=== PATIENT | male | born 1965 | race Two or more races ===

== ENCOUNTER 2017-12-08 05:07 | Emergency (ER) | payer MEDICAID, OTHER ==
[~2017-12-08] VITALS: Ht 185.4 cm; Wt 106.6 kg
[2017-12-08] MEDS ORDERED: cloNIDine HCL 0.1 MG TAB PO ONE ×2 (05:45→08:45)
[2017-12-08 06:37] LABS: Basophils # (auto) 0.1 uL; Eosinophils # (auto) 0.2 uL; Eosinophils % (auto) 3.8 % (0.0-7.0); Monocytes # (auto) 0.4 uL
[2017-12-08 06:40] LABS: Hematocrit 53.4 % (41.0-53.0); Hemoglobin 18.1 g/dL (13.5-17.5); Lymphocytes % (auto) 35.7 % (10.0-50.0); Mean Corpuscular Hemoglobin 28.9 pg (28.0-32.0); Mean Corpuscular Hgb Conc. 33.9 g/dL (32.0-36.0); Monocytes % (auto) 7.1 % (0.0-12.0); Neutrophils # (auto) 2.9 uL; Neutrophils % (auto) 52.4 % (37.0-80.0); Nucleated Red Blood Cells % 0.2 %; Platelet Count (auto) 230 10^3/uL (140-450); Red Blood Cells 6.28 10^6/uL (4.5-5.90); Red Cell Distribution Width 13.3 % (11.8-14.3); White Blood Cell 5.6 10^3/uL (4.4-10.8)
[2017-12-08 06:56] LABS: INR 0.88 (0.9-1.15); Partial Thromboplastin Time 27.8 sec (23.78-33.04); Prothrombin Time 9.5 sec (9.27-12.13)
[2017-12-08 07:17] LABS: Alanine Aminotransferase 43 U/L (16-61); Albumin 4.2 g/dL (3.4-5.0); Alkaline Phosphatase 111 U/L (45-117); Anion Gap 8 (5-15); Aspartate Aminotransferase 22 U/L (15-37); BUN/Creatinine Ratio 10.2; Bilirubin, Total 0.8 mg/dL (0.2-1.0); Blood Urea Nitrogen 14 mg/dL (7-18); Calcium 8.9 mg/dL (8.5-10.1); Carbon Dioxide 27 mmol/L (21-32); Chloride 107 mmol/L (98-107); GFR African American 70 mL/min; GFR Non-African American 58 mL/min; Glucose 107 mg/dL (74-106); Magnesium 2.9 mg/dL (1.6-2.6); Potassium 3.2 mmol/L (3.5-5.1); Sodium 142 mmol/L (136-145); Total Protein 7.7 g/dL (6.4-8.2)
[2017-12-08 12:14] VITALS: BP 169/116
== END 2017-12-08 12:27 | disposition home or self-care (01) ==
LOC: ER 05:07
DX: S90.02XA Contusion of left ankle, initial encounter (principal); E78.5 Hyperlipidemia, unspecified; I10 Essential (primary) hypertension; F17.210 Nicotine dependence, cigarettes, uncomplicated; W21.03XA Struck by baseball, initial encounter; Y93.89 Activity, other specified; Y92.89 Other specified places as the place of occurrence of the external cause; Y99.8 Other external cause status
CPT/HCPCS: 36415; 71045; 73630; 80053; 83735; 83880; 84484; 85025; 85610; 85730; 93005; 93971

== ENCOUNTER 2023-02-07 17:16 | Emergency (ER) | payer MEDICAID ==
[~2023-02-07] VITALS: Ht 180.3 cm; Wt 103.6 kg
[2023-02-07] MEDS ORDERED: SODIUM CHLORIDE 0.9% 1,000 ML IV ONE ×2 (17:45→20:15)
[2023-02-07] MEDS ORDERED: LORazepam 2MG/ML-1ML VIAL IV ONE (17:45)
[2023-02-07 17:48] VITALS: O2SAT 95
[2023-02-07 18:22] LABS: Basophils # (auto) 0 10 ^3/uL (0-0.2); Eosinophils # (auto) 0.1 10 ^3/uL (0-0.8); Eosinophils % (auto) 1.1 % (0.0-7.0); Lymphocytes # (auto) 1.6 10 ^3/uL (0.4-5.4)
[2023-02-07 18:24] LABS: Basophils % (auto) 0.4 % (0.0-2.0); Hematocrit 54.3 % (41.0-53.0); Hemoglobin 18.8 g/dL (13.5-17.5); Lymphocytes % (auto) 25.2 % (10.0-50.0); Mean Corpuscular Hemoglobin 28.6 pg (28.0-32.0); Mean Corpuscular Hgb Conc. 34.7 g/dL (32.0-36.0); Mean Corpuscular Volume 82.4 fL (80.0-100.0); Monocytes # (auto) 0.4 10 ^3/uL (0-1.3); Monocytes % (auto) 6.7 % (0.0-12.0); Neutrophils # (auto) 4.1 10 ^3/uL (1.6-8.6); Neutrophils % (auto) 66.6 % (37.0-80.0); Nucleated Red Blood Cells % 0.4 %; Red Blood Cells 6.59 10^6/uL (4.5-5.90); Red Cell Distribution Width 12.8 % (11.8-14.3); White Blood Cell 6.1 10^3/uL (4.4-10.8)
[2023-02-07 18:32] LABS: Alanine Aminotransferase 59 U/L (7-40); Albumin 4.2 g/dL (3.2-4.8); Alkaline Phosphatase 161 U/L (46-116); Anion Gap 10 (5-15); Aspartate Aminotransferase 40 U/L (13-40); BUN/Creatinine Ratio 15.9 (10.0-20.0); Bilirubin, Total 0.6 mg/dL (0.2-1.0); Blood Urea Nitrogen 31 mg/dL (9-23); Calcium 9.2 mg/dL (8.5-10.1); Carbon Dioxide 21 mmol/L (20-30); Chloride 99 mmol/L (98-107); Potassium 4.8 mmol/L (3.5-5.1); Sodium 130 mmol/L (136-145); Total Protein 6.9 g/dL (5.7-8.2)
[2023-02-07 18:38] LABS: Glucose 697 mg/dL (74-106)
[2023-02-07] MEDS ORDERED: InsuLIN REG 1unit/0.01ml Soln (100units/ml) IV ONE (19:15)
[2023-02-07] MEDS ORDERED: hydrALAZINE HCL 20 MG/ML VL IV ONE (19:15)
[2023-02-07 19:44] VITALS: PULSE 91; RESP 24; O2SAT 92
[2023-02-07 20:00] VITALS: TEMP 98.4
[2023-02-07 20:10] LABS: Urine Bacteria NONE SEEN /hpf (None Seen); Urine Blood Negative /uL (Negative); Urine Clarity Clear (Clear); Urine Color Colorless (Yellow); Urine Protein, UAD Negative (Negative); Urine Urobilinogen Normal (Negative); Urine WBC 1 /hpf (0 - 3)
[2023-02-07] MEDS ORDERED: LABETALOL HCL 5 MG/ML 4ML SYRINGE IV ONE (20:30)
[2023-02-07] MEDS ORDERED: GLIP5TAB12 PO (22:54)
[2023-02-07] MEDS ORDERED: HYDR25TA4 PO (22:54)
[2023-02-07 23:30] VITALS: BP 144/96; PULSE 75; RESP 18; O2SAT 95
== END 2023-02-07 23:41 | disposition home or self-care (01) ==
LOC: ER 17:16
DX: I10 Essential (primary) hypertension (principal); E11.9 Type 2 diabetes mellitus without complications; F17.210 Nicotine dependence, cigarettes, uncomplicated; E78.5 Hyperlipidemia, unspecified
CPT/HCPCS: 36415; 80053; 81001; 82962; 84484; 85025; 93005; 96361; 96374; 96375; 99284; J0360; J1815; J2060; J3490; J7030

== ENCOUNTER 2023-02-09 10:02 | Inpatient (IN) | payer MEDICAID ==
[~2023-02-09] VITALS: Ht 185.4 cm; Wt 106.0 kg
[~2023-02-09 10:02] MED LIST: GLIP5TAB12 PO; HYDR25TA4 PO
[2023-02-09 10:58] VITALS: PULSE 78; RESP 16; O2SAT 97
[2023-02-09 11:12] LABS: Eosinophils # (auto) 0.1 10 ^3/uL (0-0.8)
[2023-02-09 11:15] LABS: Basophils # (auto) 0 10 ^3/uL (0-0.2); Basophils % (auto) 0.6 % (0.0-2.0); Eosinophils % (auto) 1.1 % (0.0-7.0); Hematocrit 54.2 % (41.0-53.0); Hemoglobin 18.8 g/dL (13.5-17.5); Lymphocytes # (auto) 1.4 10 ^3/uL (0.4-5.4); Mean Corpuscular Hemoglobin 28.4 pg (28.0-32.0); Mean Corpuscular Hgb Conc. 34.7 g/dL (32.0-36.0); Mean Corpuscular Volume 81.6 fL (80.0-100.0); Monocytes # (auto) 0.5 10 ^3/uL (0-1.3); Monocytes % (auto) 7.3 % (0.0-12.0); Neutrophils # (auto) 4.6 10 ^3/uL (1.6-8.6); Nucleated Red Blood Cells % 0.6 %; Red Blood Cells 6.64 10^6/uL (4.5-5.90); Red Cell Distribution Width 13.1 % (11.8-14.3); White Blood Cell 6.6 10^3/uL (4.4-10.8)
[2023-02-09 11:16] LABS: Alanine Aminotransferase 54 U/L (7-40); Albumin 4.3 g/dL (3.2-4.8); Alkaline Phosphatase 165 U/L (46-116); Anion Gap 5 (5-15); Aspartate Aminotransferase 25 U/L (13-40); BUN/Creatinine Ratio 15.5 (10.0-20.0); Blood Urea Nitrogen 24 mg/dL (9-23); Calcium 9.5 mg/dL (8.5-10.1); Carbon Dioxide 23 mmol/L (20-30); Chloride 102 mmol/L (98-107); Potassium 5.2 mmol/L (3.5-5.1); Sodium 130 mmol/L (136-145); Total Protein 7.1 g/dL (5.7-8.2)
[2023-02-09 11:31] LABS: Glucose 608 mg/dL (74-106)
[2023-02-09] MEDS ORDERED: SODIUM CHLORIDE 0.9% 1,000 ML IV ONE ×3 (11:45→15:15)
[2023-02-09] MEDS ORDERED: DEXTROSE (50%) 50ML SYRG IV PRN ×2 (11:45→15:15)
[2023-02-09] MEDS ORDERED: INSULIN LANTUS (GLARGINE) 1 /0.01ml (100units/ml) SC ONE (11:45)
[2023-02-09] MEDS ORDERED: InsuLIN R (HUMAN) 100 UNITS in SODIUM CHL 0.9% 99 ML IV SCH (11:45)
[2023-02-09 11:56] LABS: Platelet Estimate Adequate
[2023-02-09] MEDS ORDERED: ACCU-CHEK COMFORT CURVE STRIP VI SCH (12:00)
[2023-02-09 12:01] LABS: Urine Bacteria NONE SEEN /hpf (None Seen); Urine Blood Negative /uL (Negative); Urine Clarity Clear (Clear); Urine Protein, UAD Negative (Negative); Urine Urobilinogen Normal (Negative); Urine WBC <1 /hpf (0 - 3)
[2023-02-09 12:06] LABS: Urine Color Straw (Yellow)
[2023-02-09] MEDS ORDERED: InsuLIN REG 1unit/0.01ml Soln (100units/ml) IV ONE ×2 (12:45→13:45)
[2023-02-09] MEDS ORDERED: ONDANSETRON HCL 4 MG/2 ML VIAL IV PRN (15:15)
[2023-02-09] MEDS ORDERED: DOCUSATE SOD 100 MG CAP PO PRN (15:15)
[2023-02-09] MEDS ORDERED: SODIUM CHLORIDE 0.9% 1,000 ML IV SCH ×2 (15:15→16:30)
[2023-02-09] MEDS ORDERED: MORPHINE SULFATE INJ 2 MG/ml SYRG IV PRN (15:15)
[2023-02-09] MEDS: ENOXAPARIN SOD 40 MG/0.4 ML SYRINGE SC SCH (16:41)
[2023-02-09] MEDS: SODIUM CHLORIDE 0.9% 1,000 ML IV SCH (16:45)
[2023-02-09 17:37] LABS: Creatinine, Urine 26.47 mg/dL (30.0-125.0)
[2023-02-09] MEDS: ACCU-CHEK COMFORT CURVE STRIP VI SCH ×2 (17:45→22:11)
[2023-02-09] MEDS: hydrALAZINE HCL 20 MG/ML VL IV PRN (18:39)
[2023-02-09 19:34] LABS: Alanine Aminotransferase 40 U/L (7-40); Albumin 3.6 g/dL (3.2-4.8); Alkaline Phosphatase 118 U/L (46-116); Anion Gap 6 (5-15); Aspartate Aminotransferase 22 U/L (13-40); BUN/Creatinine Ratio 11.9 (10.0-20.0); Bilirubin, Total 0.6 mg/dL (0.2-1.0); Blood Urea Nitrogen 16 mg/dL (9-23); Calcium 8.8 mg/dL (8.5-10.1); Carbon Dioxide 23 mmol/L (20-30); Chloride 107 mmol/L (98-107); Potassium 4.3 mmol/L (3.5-5.1); Sodium 136 mmol/L (136-145); Total Protein 6.2 g/dL (5.7-8.2)
[2023-02-09 19:49] LABS: Glucose 422 mg/dL (74-106)
[2023-02-09 20:00] VITALS: PULSE 74; RESP 12; O2SAT 94
[2023-02-09] MEDS: InsuLIN REG 1unit/0.01ml Soln (100units/ml) SC SCH (20:58)
[2023-02-09 22:00] VITALS: BP 185/91; PULSE 76; RESP 20; TEMP 98.7; O2SAT 98
[2023-02-09] MEDS: GABAPENTIN 100 MG CAP PO SCH ×2 (22:00→22:11)
[2023-02-09] MEDS ORDERED: InsuLIN REG 1unit/0.01ml Soln (100units/ml) SC SCH (22:00)
[2023-02-09 22:37] VITALS: BP 185/91; PULSE 76; RESP 20; TEMP 98.7; O2SAT 98
[2023-02-09] MEDS: ACETAMINOPHEN 325 MG TAB PO PRN (23:27)
[2023-02-10] VITALS (9 sets, daily range): BP systolic 139–175; BP diastolic 86–111; PULSE 76–88; RESP 17–19; TEMP 97–98.7; O2SAT 93–99
[2023-02-10] MEDS: hydrALAZINE HCL 20 MG/ML VL IV PRN ×4 (00:03→18:44)
[2023-02-10] MEDS: SODIUM CHLORIDE 0.9% 1,000 ML IV SCH ×3 (00:45→13:39)
[2023-02-10] MEDS ORDERED: SIMV40TA18 PO (03:37)
[2023-02-10] MEDS ORDERED: LISI40TA16 PO (03:38)
[2023-02-10] MEDS ORDERED: AMLO1TAB22 PO (03:39)
[2023-02-10] MEDS: GABAPENTIN 100 MG CAP PO SCH ×3 (05:31→21:37)
[2023-02-10] MEDS: ACCU-CHEK COMFORT CURVE STRIP VI SCH ×4 (06:26→21:38)
[2023-02-10] MEDS: InsuLIN REG 1unit/0.01ml Soln (100units/ml) SC SCH ×4 (06:27→21:41)
[2023-02-10 07:36] LABS: Basophils # (auto) 0.1 10 ^3/uL (0-0.2); Eosinophils # (auto) 0.1 10 ^3/uL (0-0.8); Hematocrit 50.8 % (41.0-53.0); Hemoglobin 17.9 g/dL (13.5-17.5); Lymphocytes # (auto) 1.7 10 ^3/uL (0.4-5.4); Lymphocytes % (auto) 32.9 % (10.0-50.0); Mean Corpuscular Hemoglobin 28.4 pg (28.0-32.0); Mean Corpuscular Hgb Conc. 35.2 g/dL (32.0-36.0); Mean Corpuscular Volume 80.5 fL (80.0-100.0); Monocytes # (auto) 0.3 10 ^3/uL (0-1.3); Monocytes % (auto) 6.3 % (0.0-12.0); Neutrophils # (auto) 3.1 10 ^3/uL (1.6-8.6); Neutrophils % (auto) 57.8 % (37.0-80.0); Nucleated Red Blood Cells % 0.5 %; Red Blood Cells 6.31 10^6/uL (4.5-5.90); Red Cell Distribution Width 13.1 % (11.8-14.3); White Blood Cell 5.3 10^3/uL (4.4-10.8)
[2023-02-10 07:53] LABS: Alanine Aminotransferase 47 U/L (7-40); Albumin 3.9 g/dL (3.2-4.8); Alkaline Phosphatase 112 U/L (46-116); Anion Gap 9 (5-15); Aspartate Aminotransferase 23 U/L (13-40); BUN/Creatinine Ratio 9.9 (10.0-20.0); Bilirubin, Total 0.9 mg/dL (0.2-1.0); Blood Urea Nitrogen 12 mg/dL (9-23); Calcium 9.1 mg/dL (8.5-10.1); Carbon Dioxide 21 mmol/L (20-30); Chloride 109 mmol/L (98-107); Cholesterol 160 mg/dL (< 200); HDL Cholesterol 23 mg/dL (40-59); LDL Cholesterol 90 mg/dL (< 100); Potassium 3.8 mmol/L (3.5-5.1); Sodium 139 mmol/L (136-145); Total Protein 6.6 g/dL (5.7-8.2); Triglycerides 297 mg/dL (< 150)
[2023-02-10 07:55] LABS: Glucose 266 mg/dL (74-106)
[2023-02-10] MEDS: INSULIN LANTUS (GLARGINE) 1 /0.01ml (100units/ml) SC SCH (08:45)
[2023-02-10] MEDS: ENOXAPARIN SOD 40 MG/0.4 ML SYRINGE SC SCH (10:00)
[2023-02-10] MEDS ORDERED: LOSARTAN POTASSIUM 25 MG TAB PO SCH (10:00)
[2023-02-10] MEDS ORDERED: LISINOPRIL 20 MG TAB PO ONE ×2 (13:00→18:00)
[2023-02-10] MEDS ORDERED: DEXTROSE (50%) 50ML SYRG IV PRN (13:00)
[2023-02-10] MEDS ORDERED: amLODIPine BESYLATE 5 MG TAB PO ONE (13:00)
[2023-02-10] MEDS: metFORMIN HYDROCHLORIDE 500 MG TAB PO SCH (17:23)
[2023-02-10] MEDS ORDERED: RAME8TAB17 PO (18:23)
[2023-02-10] MEDS ORDERED: GLIP-110 PO (18:23)
[2023-02-10] MEDS ORDERED: HYDR25TA4 PO (18:23)
[2023-02-10] MEDS ORDERED: SILD50TA42 PO (18:23)
[2023-02-10] MEDS: ATORVASTATIN 20 MG TAB PO SCH (21:37)
[2023-02-10] MEDS: ACETAMINOPHEN 325 MG TAB PO PRN (21:39)
[2023-02-11] VITALS (7 sets, daily range): BP systolic 127–154; BP diastolic 83–109; PULSE 72–98; RESP 18–20; TEMP 97.7–98.2; O2SAT 95–98
[2023-02-11] MEDS: hydrALAZINE HCL 20 MG/ML VL IV PRN ×2 (03:30→20:15)
[2023-02-11] MEDS: ACETAMINOPHEN 325 MG TAB PO PRN ×2 (03:43→20:12)
[2023-02-11] MEDS: SODIUM CHLORIDE 0.9% 1,000 ML IV SCH (05:40)
[2023-02-11] MEDS: GABAPENTIN 100 MG CAP PO SCH ×3 (05:58→21:20)
[2023-02-11] MEDS: ACCU-CHEK COMFORT CURVE STRIP VI SCH ×4 (05:58→21:32)
[2023-02-11] MEDS: InsuLIN REG 1unit/0.01ml Soln (100units/ml) SC SCH ×4 (06:00→21:34)
[2023-02-11 06:10] LABS: Chloride 104 mmol/L (98-107); Potassium 3.7 mmol/L (3.5-5.1); Sodium 136 mmol/L (136-145)
[2023-02-11 06:11] LABS: Anion Gap 10 (5-15); Carbon Dioxide 22 mmol/L (20-30)
[2023-02-11 06:16] LABS: BUN/Creatinine Ratio 9.5 (10.0-20.0); Blood Urea Nitrogen 13 mg/dL (9-23); Glucose 243 mg/dL (74-106)
[2023-02-11] MEDS: metFORMIN HYDROCHLORIDE 500 MG TAB PO SCH (08:00)
[2023-02-11] MEDS: LISINOPRIL 20 MG TAB PO SCH (09:45)
[2023-02-11] MEDS: INSULIN LANTUS (GLARGINE) 1 /0.01ml (100units/ml) SC SCH ×2 (09:47→22:45)
[2023-02-11] MEDS ORDERED: amLODIPine BESYLATE 5 MG TAB PO SCH (10:00)
[2023-02-11] MEDS ORDERED: glipiZIDE 5 MG TAB PO ONE (12:45)
[2023-02-11] MEDS ORDERED: amLODIPine BESYLATE 5 MG TAB PO ONE (12:45)
[2023-02-11] MEDS: ATORVASTATIN 20 MG TAB PO SCH (21:19)
[2023-02-12 05:00] VITALS: BP 162/102; PULSE 72; RESP 17; TEMP 97.9; O2SAT 96
[2023-02-12] MEDS: GABAPENTIN 100 MG CAP PO SCH ×2 (06:00→14:00)
[2023-02-12] MEDS: ACCU-CHEK COMFORT CURVE STRIP VI SCH ×2 (06:11→12:57)
[2023-02-12] MEDS: InsuLIN REG 1unit/0.01ml Soln (100units/ml) SC SCH ×2 (06:12→12:58)
[2023-02-12] MEDS: hydrALAZINE HCL 20 MG/ML VL IV PRN (06:34)
[2023-02-12 06:36] LABS: Anion Gap 5 (5-15); Calcium 8.9 mg/dL (8.7-10.4); Carbon Dioxide 26 mmol/L (20-30); Chloride 105 mmol/L (98-107); Potassium 3.9 mmol/L (3.5-5.1); Sodium 136 mmol/L (136-145)
[2023-02-12 06:42] LABS: BUN/Creatinine Ratio 9.5 (10.0-20.0); Blood Urea Nitrogen 13 mg/dL (9-23); Glucose 204 mg/dL (74-106)
[2023-02-12] MEDS ORDERED: glipiZIDE 5 MG TAB PO SCH (07:00)
[2023-02-12 08:00] VITALS: PULSE 86; RESP 18; O2SAT 96
[2023-02-12 09:00] VITALS: BP 153/77; PULSE 78; RESP 20; TEMP 98.7; O2SAT 96
[2023-02-12] MEDS: LISINOPRIL 20 MG TAB PO SCH (09:59)
[2023-02-12] MEDS ORDERED: amLODIPine BESYLATE 5 MG TAB PO SCH (10:00)
[2023-02-12] MEDS: ACETAMINOPHEN 325 MG TAB PO PRN (10:01)
[2023-02-12] MEDS: INSULIN LANTUS (GLARGINE) 1 /0.01ml (100units/ml) SC SCH (10:08)
[2023-02-12] MEDS ORDERED: INSU100I61 SC (12:01)
[2023-02-12] MEDS ORDERED: INSLANTI SC (12:13)
[2023-02-12 13:55] VITALS: PULSE 86; RESP 18; TEMP 97.8
== END 2023-02-12 15:31 | disposition home or self-care (01) | DRG 420 ==
LOC: EDBD 10:02 → ER 10:02 → OVERFLOW 15:19 → TELE 15:28 → TELE-WESTW 21:41 → WEST WING 02-11 08:45
PROVIDERS: ADMIT Nurse Practitioner Family; ATTEND Internal Medicine
DX: E11.00 Type 2 diabetes mellitus with hyperosmolarity without nonketotic hyperglycemic-hyperosmolar coma (NKHHC) (principal); N17.0 Acute kidney failure with tubular necrosis; E11.65 Type 2 diabetes mellitus with hyperglycemia; E87.5 Hyperkalemia; E87.1 Hypo-osmolality and hyponatremia; I16.0 Hypertensive urgency; F12.10 Cannabis abuse, uncomplicated; E78.5 Hyperlipidemia, unspecified; E86.0 Dehydration; E11.40 Type 2 diabetes mellitus with diabetic neuropathy, unspecified; F15.90 Other stimulant use, unspecified, uncomplicated; F17.210 Nicotine dependence, cigarettes, uncomplicated; R74.01 Elevation of levels of liver transaminase levels; E66.9 Obesity, unspecified; Z68.30 Body mass index [BMI] 30.0-30.9, adult; E11.22 Type 2 diabetes mellitus with diabetic chronic kidney disease; I12.9 Hypertensive chronic kidney disease with stage 1 through stage 4 chronic kidney disease, or unspecified chronic kidney disease; N18.30 Chronic kidney disease, stage 3 unspecified
CPT/HCPCS: 36415; 36600; 76775; 80048; 80053; 80061; 81001; 82010; 82570; 82805; 82962; 83036; 84300; 85025; 93005; 93970; 96372; 96374; 99291; G0378; J1815

== ENCOUNTER 2024-10-15 10:31 | Inpatient (IN) | payer MEDICAID ==
[~2024-10-15] VITALS: Ht 177.8 cm; Wt 104.4 kg
[2024-10-15] VITALS (21 sets, daily range): BP systolic 106–180; BP diastolic 33–82; PULSE 73–94; RESP 13–21; TEMP 98.2; O2SAT 90–96
[~2024-10-15 10:31] MED LIST changes: +AMLO1TAB22 PO; +GLIP-110 PO; -GLIP5TAB12 PO; +GLIP5TAB21 PO; +INSLANTI SC; +INSU100I61 SC; +LISI40TA16 PO; +RAME8TAB17 PO; +SILD50TA PO; +SIMV40TA18 PO
--- NOTE | 2024-10-15 10:51 | ECG ---
[facility] Test Date: 2024-10-15 Test Time: 10:46:49 Pat Name: ANTONINO BRIGHT Department: ER Room: [address] [place] [address] Gender: M Ethanol Maintenance Mechanic: GP : 1965 Requested By: DALLAS HURLEY Order Number: [id number] Reading MD: Kailash Campoverde Measurements Intervals [place] Rate: 83 P: 56 AL: 165 QRS: 38 QRSD: 105 T: -33 QT: 395 QTc: 465 Interpretive Statements Sinus rhythm Left atrial enlargement Borderline repolarization abnormality Baseline wander in lead(s) III,V1,V3,V4,V5,V6 Electronically Signed On 10-16-2024 14:58:38 PDT by Kailash Campoverde Please click the below link to view image of tracing.
--- NOTE | 2024-10-15 10:54 | ED.PDOC ---
History of Present Illness HPI Comments 59-year-old female presents with a chief complaint of dizziness, nausea, and vomiting x 5 days with associated hypertension. Patient's main complaint is that he has been feeling dizzy for the past 5 days. Patient states that since feeling dizzy, he has been having nausea and intermittent vomiting episodes. Patient report that for the past 5 days, he has not been taking his medication for his blood pressure due to being dizzy. Patients BP in triage was 225/157. Patient denies any chest pain or headache at this time. Chief Complaint: High Blood Pressure Time Seen by MD: 10:45 Primary Care Provider: UNKNOWN Reviewed Notes: Nurses Notes, Medications, Allergies Allergies: Coded Allergies: Lactose Intolerance (GI) (Verified Allergy, Unknown, 02/10/23) Home Meds Active Scripts Insulin Glargine (Lantus) 100 Unit/Ml Inj, 15 UNITS SC BID@1000,2200 for 30 Days, #1 INJ please give 1 pen of 100unit of SoloStar (glargine). pt to give 15 units BID subQ Prov:KARIS ARNOLD DO 02/12/23 Insulin Aspart (Novolog Flexpen Relion) 100 Unit/Ml Inj, 100 UNIT SC BID for 30 Days, #1 INJ 3 Refills pt to give himself 15units twice a day subcutaneous Prov:KARIS ARNOLD DO 02/12/23 Glipizide (Glipizide) 5 Mg Tab, 1 TAB PO DAILY, #30 TAB 3 Refills Prov:JOE BETANCOURTP 02/07/23 Hydrochlorothiazide (Hydrochlorothiazide) 25 Mg Tab, 1 TAB PO DAILY, #30 TAB 5 Refills Prov:JOE BETANCOURT 02/07/23 Reported Medications Glipizide (Glipizide Er) 5 Mg Tab, 5 MG PO DAILY for 30 Days, MG 02/10/23 Hydrochlorothiazide (Hydrochlorothiazide) 25 Mg Tab, 25 MG PO DAILY for 30 Days, MG 02/10/23 Ramelteon (Rozerem) 8 Mg Tab, 1 TAB PO DAILY, TAB 1 Refill 02/10/23 Sildenafil Citrate (Viagra) 50 Mg Tab, 25 TAB PO 02/10/23 Amlodipine Besylate (Amlodipine Besylate) 5 Mg Tab, 10 MG PO DAILY for 30 Days, MG 02/10/23 Lisinopril (Lisinopril) 40 Mg Tab, 1 TAB PO DAILY, #30 TAB 5 Refills 02/10/23 Simvastatin (Simvastatin) 40 Mg Tab, 1 TAB PO QPM, #30 TAB 5 Refills 02/10/23 Information Source: Patient Mode of Arrival: Ambulatory Severity: Moderate Timing: Days Duration: Since onset Prehospital treatment: None Past Medical History PAST MEDICAL HISTORY: Cancer, DM, High Lipids, HTN Surgical History: Denies all surgeries Family History Family History: Unknown Social History Smoker: Cigarettes Alcohol: Denies ETOH Use Drugs: Marijuana Lives In: Home Constitutional: denies: chills, diaphoresis, fatigue, fever, malaise, sweats, weakness, others EENTM: denies: blurred vision, double vision, ear bleeding, ear discharge, ear drainage, ear pain, ear ringing, eye pain, eye redness, hearing loss, mouth pain, mouth swelling, nasal discharge, nose bleeding, nose congestion, nose pain, photophobia, tearing, throat pain, throat swelling, voice changes, others Respiratory: denies: cough, hemoptysis, orthopnea, SOB at rest, shortness of breath, SOB with excertion, stridor, wheezing, others Cardiovascular: denies: chest pain, dizzy spells, diaphoresis, Dyspnea on exertion, edema, irregular heart beat, left arm pain, lightheadedness, palpitations, PND, syncope, others Gastrointestinal: reports: nausea, vomiting; denies: abdomen distended, abdominal pain, blood streaked bowels, constipated, diarrhea, dysphagia, difficulty swallowing, hematemesis, melena, poor appetite, poor fluid intake, rectal bleeding, rectal pain, others Genitourinary: denies: burning, dysuria, flank pain, frequency, hematuria, incontinence, penile discharge, penile sore, pain, testicle pain, testicle swelling, urgency, others Neurological: reports: dizziness; denies: fainting, headache, left sided numbness, left sided weakness, numbness, paresthesia, pre-existing deficit, right sided numbness, right sided weakness, seizure, speech problems, tingling, tremors, weakness, others Musculoskeletal: denies: back pain, gout, joint pain, joint swelling, muscle pain, muscle stiffness, neck pain, others Integumetry: denies: bruises, change in color, change in hair/nails, dryness, laceration, lesions, lumps, rash, wounds, others Allergic/Immunocompromised: denies: Difficulty Healing, Frequent Infections, Hives, Itching, others Hematologic/Lymphatic: denies: anemia, blood clots, easy bleeding, easy bruising, swollen glands, others Endocrine: denies: excessive hunger, excessive sweating, excessive thirst, excessive urination, flushing, intolerance to cold, intolerance to heat, unexplained weight gain, unexplained weight loss, others Psychiatric: denies: anxiety, bipolar disorder, depression, hopeless, panic disorder, schizophrenia, sleepless, suicidal, others All Other Systems: Reviewed and Negative Physical Exam General Appearance: Moderate Distress HEENT: Normal ENT Inspection, Pharynx Normal, TMs Normal Neck: Full Range of Motion, Non-Tender, Normal, Normal Inspection Respiratory: Chest Non-Tender, Lungs Clear, No Accessory Muscle Use, No Respiratory Distress, Normal Breath Sounds Cardiovascular: No Edema, No JVD, No Murmur, No Gallop, Normal Peripheral Pulses, Regular Rate/Rhythm Breast Exam: Deferred Gastrointestinal: No Organomegaly, Non Tender, No Pulsatile Mass, Normal Bowel Sounds, Soft Genitalia: Deferred Pelvic: Deferred Rectal: Deferred Extremities: No calf tenderness, Normal capillary refill, Normal inspection, Normal range of motion, Non-tender, No pedal edema Musculoskeletal : Apperance: Normal Neurologic: Alert, 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 Was a procedure done?: No EKG EKG : Pulse Rate (adult): 83 [place]: Normal Cardiac Rhythm: NSR Block: None Hypertrophy: LAE ST: Normal Differential Dx Considerations may include: Generalized weakness, electrolyte imbalance, dehydration, CVA, hypertensive crisis X-Ray, Labs, Meds, VS Vital Signs Date Time Temp Pulse Resp B/P (MAP) Pulse Ox O2 Delivery O2 Flow Rate FiO2 10/15/24 12:05 210/143 10/15/24 12:00 67 10/15/24 11:02 98.2 87 17 225/157 (179) 97 98.2 10/15/24 10:54 83 10/15/24 10:46 83 Lab Test 10/15/24 11:50 10/15/24 10:57 10/15/24 10:40 Range/Units Troponin I High Sensitivity 21 23 </=54 ng/L White Blood Count 6.4 4.4-10.8 10^3/uL Red Blood Count 6.79 H 4.5-5.90 10^6/uL Hemoglobin 19.5 H 13.5-17.5 g/dL Hematocrit 56.1 H 41.0-53.0 % Mean Corpuscular Volume 82.6 80.0-100.0 fL Mean Corpuscular Hemoglobin 28.7 28.0-32.0 pg Mean Corpuscular Hemoglobin Concent 34.7 32.0-36.0 g/dL Red Cell Distribution Width 13.8 11.8-14.3 % Platelet Count 196 140-450 10^3/uL Mean Platelet Volume 7.2 6.9-10.8 fL Neutrophils (%) (Auto) 67.3 37.0-80.0 % Lymphocytes (%) (Auto) 24.0 10.0-50.0 % Monocytes (%) (Auto) 6.3 0.0-12.0 % Eosinophils (%) (Auto) 1.8 0.0-7.0 % Basophils (%) (Auto) 0.6 0.0-2.0 % Neutrophils # (Auto) 4.3 1.6-8.6 10 ^3/uL Lymphocytes # (Auto) 1.5 0.4-5.4 10 ^3/uL Monocytes # (Auto) 0.4 0-1.3 10 ^3/uL Eosinophils # (Auto) 0.1 0-0.8 10 ^3/uL Basophils # (Auto) 0 0-0.2 10 ^3/uL Nucleated Red Blood Cells 1.2 % Sodium Level 141 136-145 mmol/L Potassium Level 3.8 3.5-5.1 mmol/L Chloride Level 110 H 98-107 mmol/L Carbon Dioxide Level 23 20-31 mmol/L Anion Gap 8 5-15 Blood Urea Nitrogen 17 9-23 mg/dL Creatinine 1.21 0.700-1.30 mg/dL Glomerular Filtration Rate Calc 69 >90 mL/min BUN/Creatinine Ratio 14.0 10.0-20.0 Serum Glucose 157 H 74-106 mg/dL Calcium Level 9.5 8.7-10.4 mg/dL POC Glucose 156 H 70-106 mg/dl Current Medications Medications (Trade) Dose Ordered Sig/Kelly Route Start Time Stop Time Status Last Admin Nicardipine/ Sodium Chloride 200 ml @ 50 mls/hr Q4H IV 10/15/24 12:00 10/15/24 12:05 IV Hep-Lock was established The patient's CBC and chemistry panel are within normal limits The patient's blood pressure is 225/157 Because the patient is so symptomatic we did a CAT scan of the head which shows: IMPRESSION: 1. No acute intracranial process. 2. Small area of encephalomalacia in the posterior right cerebellum. HS:Y The chest x-ray is negative The patient is being admitted to the hospitalist Images Reviewed?: Images reviewed and evaluated by me Time of 1ST Reevaluation: 11:15 Reevaluation 1ST: Improved Patient Education/Counseling: Diagnosis, Treatment, Prognosis Family Education/Counseling: No Family Present Departure 1 Departure Time of Disposition: 11:56 Impression: Primary Impression: Hypertensive crisis Disposition: ADMITTED INPATIENT Admit to: ICU Condition: Fair Critical Care Note Critical Care Time?: Yes (45 min-critical care time only) Stability Stability form required: Yes Unstable for transfer: ICU, CCU, PCU, PANKAJ (Intensive VS monitoring), ED Physician Assesment (Clinical assesment) Heart Score Heart Score: Heart Score Response (Comments) Value History N/A 0 EKG N/A 0 Age N/A 0 Risk Factors N/A 0 Troponin N/A 0 Total 0 I personally scribed for DALLAS HURLEY MD ([email or web address]) on 10/15/24 at 10:53. Electronically submitted by Nino Conde ([email or web address]). DALLAS HURLEY MD Oct 15, 2024 10:53
[2024-10-15 11:19] LABS: Basophils # (auto) 0 10 ^3/uL (0-0.2); Eosinophils # (auto) 0.1 10 ^3/uL (0-0.8); Monocytes # (auto) 0.4 10 ^3/uL (0-1.3); Neutrophils # (auto) 4.3 10 ^3/uL (1.6-8.6); White Blood Cell 6.4 10^3/uL (4.4-10.8)
[2024-10-15 11:22] LABS: Basophils % (auto) 0.6 % (0.0-2.0); Eosinophils % (auto) 1.8 % (0.0-7.0); Hemoglobin 19.5 g/dL (13.5-17.5); Lymphocytes # (auto) 1.5 10 ^3/uL (0.4-5.4); Mean Corpuscular Hemoglobin 28.7 pg (28.0-32.0); Mean Corpuscular Hgb Conc. 34.7 g/dL (32.0-36.0); Mean Corpuscular Volume 82.6 fL (80.0-100.0); Monocytes % (auto) 6.3 % (0.0-12.0); Neutrophils % (auto) 67.3 % (37.0-80.0); Nucleated Red Blood Cells % 1.2 %; Platelet Count (auto) 196 10^3/uL (140-450); Red Blood Cells 6.79 10^6/uL (4.5-5.90); Red Cell Distribution Width 13.8 % (11.8-14.3)
[2024-10-15 11:23] LABS: Potassium 3.8 mmol/L (3.5-5.1); Sodium 141 mmol/L (136-145)
[2024-10-15 11:24] LABS: Anion Gap 8 (5-15); Calcium 9.5 mg/dL (8.7-10.4); Carbon Dioxide 23 mmol/L (20-31)
[2024-10-15 11:25] LABS: Hematocrit 56.1 % (41.0-53.0)
[2024-10-15 11:29] LABS: Blood Urea Nitrogen 17 mg/dL (9-23)
--- NOTE | 2024-10-15 11:30 | DVH ---
EXAM: XY CHEST PORTABLE HISTORY: weakness COMPARISON: None TECHNIQUE: Portable AP view of the chest was performed. FINDINGS: No pneumothorax, consolidative infiltrates, or pulmonary edema. The heart is borderline enlarged. The aortic arch is calcific. There is mild thoracic spondylosis and levoscoliosis. IMPRESSION: No acute intrathoracic process.
--- NOTE | 2024-10-15 11:30 | DVH ---
EXAM: CT HEAD WITHOUT CONTRAST HISTORY: CAST COMPARISON: None TECHNIQUE: Axial images of the head were obtained and reformatted in coronal and sagittal planes. All CT scans at this medical facility are performed using dose modulation techniques as appropriate t o a performed exam including the following: Automated exposure control was utilized; adjustment of th e MA and/or KV according to patient size; and use of iterative reconstruction technique. CT Dose: CTDI volume is 65 mGy. Dose-length product is 1294 mGy*cm FINDINGS: There is no evidence of acute intracranial hemorrhage, mass, mass effect midline shift. There is no h ydrocephalus or extra-axial fluid collection. There is a small area of encephalomalacia in the education research analyst ior right cerebellum. [place]-white matter differentiation is otherwise maintained. The visualized paranasal sinuses and mastoid air cells are clear. The calvarium is intact. IMPRESSION: 1. No acute intracranial process. 2. Small area of encephalomalacia in the posterior right cerebellum. HS:Y
[2024-10-15 11:31] LABS: Chloride 110 mmol/L (98-107); Glucose 157 mg/dL (74-106)
[2024-10-15] MEDS ORDERED: NICARDIPINE HCL IN SODIUM CHLO 200 ML IV SCH (12:00)
[2024-10-15] MEDS: NICARDIPINE HCL IN SODIUM CHLO 200 ML IV ONE (12:03)
[2024-10-15] MEDS: NICARDIPINE HCL IN SODIUM CHLO 200 ML IV SCH (12:03)
[2024-10-15] MEDS ORDERED: DOCUSATE SOD 100 MG CAP PO PRN (13:45)
[2024-10-15] MEDS ORDERED: ACETAMINOPHEN 325 MG TAB PO PRN (13:45)
[2024-10-15] MEDS ORDERED: MORPHINE SULFATE INJ 2 MG/ml SYRG IV PRN (13:45)
[2024-10-15] MEDS ORDERED: HYDROcodone-ACET 5/325MG TAB PO PRN (13:45)
[2024-10-15] MEDS ORDERED: ONDANSETRON HCL 4 MG/2 ML VIAL IV PRN (13:45)
[2024-10-15] MEDS ORDERED: NITROGLYCERIN 0.4 MG SL TAB SL PRN (13:45)
[2024-10-15] MEDS ORDERED: MORPHINE SULFATE 4 MG/ML SYR/VIAL IV PRN (14:00)
[2024-10-15] MEDS: MECLIZINE HCL 25 MG TAB PO ONE (14:04)
--- NOTE | 2024-10-15 14:11 | DVHHP2 ---
History of Present Illness Reason for Visit: Hypertension History of Present Illness Live Platt is a 59-year-old male with past medical history of hypertension, hyperlipidemia, and diabetes who came for hypertension. Patient states he has been experiencing severe dizziness for about 5 days. It has been debilitating and keeping him in bed. He states he would wake up, eat a little, and go back to sleep. He states it was so severe he didn't want to keep his eyes open. He was not taking any of his medications during this. He began experiencing headaches and the dizziness was not improving prompting him to come to the hospital. Cardiovascular: HTN, hyperipidemia Endocrine: Diabetes Past Surgical History: None Smoke: No ALCOHOL: none Drugs: None Lives: with Family Domestic Violence: Neg Review of Systems Constitutional: No: Fever, Chills, Sweats, Weakness, Malaise, Other Eyes: No: Pain, Vision change, Conjunctivae inflammation, Eyelid inflammation, Other, Redness ENT: No: Ear pain, Ear discharge, Nose pain, Nose discharge, Nose congestion, Mouth pain, Mouth swelling, Throat pain, Throat swelling, Other Respiratory: No: Cough, Dry, Shortness of breath, SOB with excertion, Wheezing, Hemoptysis, Pleuritic Pain, Sputum, Wheezing, Other Cardiovascular: No: Chest Pain, Palpitations, Orthopnea, Paroxysmal Noc. Dyspnea, Edema, Lt Headedness, Other Gastrointestinal: Nausea; No: Vomiting, Abdominal Pain, Diarrhea, Constipation, Melena, Hematochezia, Other Genitourinary: No Dysuria, No Frequency, No Incontinence, No Hematuria, No Retention, No Other Musculoskeletal: No: other, neck pain, shoulder pain, arm pain, back pain, hand pain, leg pain, foot pain Skin: No: Rash, Lesions, Jaundice, Bruising, Other Neurological: Other (Dizziness); No: Weakness, Numbness, Incoordination, Change in speech, Confusion, Seizures Allergies: Coded Allergies: Lactose Intolerance (GI) (Verified Allergy, Unknown, 02/10/23) Medications Current Medications Medications Dose Ordered Sig/Kelly Route Start Time Stop Time Status Last Admin Dose Admin Nicardipine/ Sodium Chloride 200 ml @ 50 mls/hr Q4H IV 10/15/24 12:00 10/15/24 12:05 50 MLS/HR Exam Vital Signs Vital Signs Date Time Temp Pulse Resp B/P (MAP) Pulse Ox O2 Delivery O2 Flow Rate FiO2 10/15/24 12:20 183/104 10/15/24 12:00 67 10/15/24 11:10 Room Air* 0 21 10/15/24 11:02 98.2 17 97 98.2 General Appearance: Alert, Oriented X3, Cooperative, moderate distress HEENT: Atraumatic, PERRLA Respiratory: Clear to auscultation, Normal air movement Cardiovascular: Normal S1 Abdominal: Normal bowel sounds, Soft, No tenderness Extremities: No clubbing, No cyanosis, No edema, Normal pulses Skin: No rashes, No breakdown, No significant lesion Neuro: Normal gait, Normal speech, Strength at 5/5 X4 ext, Normal tone Psych/Mental Status: Mental status NL, Mood NL Labs/Xrays Labs Test 10/15/24 13:42 10/15/24 10:57 10/15/24 10:40 Range/Units White Blood Count 6.4 4.4-10.8 10^3/uL Red Blood Count 6.79 H 4.5-5.90 10^6/uL Hemoglobin 19.5 H 13.5-17.5 g/dL Hematocrit 56.1 H 41.0-53.0 % Mean Corpuscular Volume 82.6 80.0-100.0 fL Mean Corpuscular Hemoglobin 28.7 28.0-32.0 pg Mean Corpuscular Hemoglobin Concent 34.7 32.0-36.0 g/dL Red Cell Distribution Width 13.8 11.8-14.3 % Platelet Count 196 140-450 10^3/uL Mean Platelet Volume 7.2 6.9-10.8 fL Neutrophils (%) (Auto) 67.3 37.0-80.0 % Lymphocytes (%) (Auto) 24.0 10.0-50.0 % Monocytes (%) (Auto) 6.3 0.0-12.0 % Eosinophils (%) (Auto) 1.8 0.0-7.0 % Basophils (%) (Auto) 0.6 0.0-2.0 % Neutrophils # (Auto) 4.3 1.6-8.6 10 ^3/uL Lymphocytes # (Auto) 1.5 0.4-5.4 10 ^3/uL Monocytes # (Auto) 0.4 0-1.3 10 ^3/uL Eosinophils # (Auto) 0.1 0-0.8 10 ^3/uL Basophils # (Auto) 0 0-0.2 10 ^3/uL Nucleated Red Blood Cells 1.2 % Sodium Level 141 136-145 mmol/L Potassium Level 3.8 3.5-5.1 mmol/L Chloride Level 110 H 98-107 mmol/L Carbon Dioxide Level 23 20-31 mmol/L Anion Gap 8 5-15 Blood Urea Nitrogen 17 9-23 mg/dL Creatinine 1.21 0.700-1.30 mg/dL Glomerular Filtration Rate Calc 69 >90 mL/min BUN/Creatinine Ratio 14.0 10.0-20.0 Serum Glucose 157 H 74-106 mg/dL Calcium Level 9.5 8.7-10.4 mg/dL POC Glucose 156 H 70-106 mg/dl EXAM: XY CHEST PORTABLE FINDINGS: No pneumothorax, consolidative infiltrates, or pulmonary edema. The heart is borderline enlarged. The aortic arch is calcific. There is mild thoracic spondylosis and levoscoliosis. IMPRESSION: No acute intrathoracic process. EXAM: CT HEAD WITHOUT CONTRAST FINDINGS: There is no evidence of acute intracranial hemorrhage, mass, mass effect midline shift. There is no hydrocephalus or extra-axial fluid collection. There is a small area of encephalomalacia in the posterior right cerebellum. [place]-white matter differentiation is otherwise maintained. The visualized paranasal sinuses and mastoid air cells are clear. The calvarium is intact. IMPRESSION: 1. No acute intracranial process. 2. Small area of encephalomalacia in the posterior right cerebellum. Assessment/Plan Assessment/Plan Assessment: Hypertensive crisis, Hyperglycemia, Uncontrolled diabetes, Hyperlipidemia, Plan: Admit to ICU, Cardizem drip, Start home medications, Accu checks Q AC&HS with sliding scale, A1c, Plan discussed with: Patient My Orders Orders - TYLER NANCE Procedure Category Date Status Time Admit ADMIT 10/15/24 Transmitted 13:42 Code Status CODE 10/15/24 Transmitted 13:42 2 Gm Sodium Diet DIET 10/15/24 Transmitted Dinner Sodium Chloride Lock PHA 10/15/24 Transmitted (Saline Lock Ns) 14:00 Hydrocodone-Acet PHA 10/15/24 Transmitted 5/325mg Tab ([place] 13:45 Ondansetron Hcl PHA 10/15/24 Transmitted (Zofran) 13:45 Docusate Sodium [facility] 10/15/24 Transmitted Capsule (Colace 13:45 Complete Blood Count LAB 10/16/24 Verified 04:00 Comprehensive LAB 10/16/24 Verified Metabolic Panel 04:00 Condition: Critical [facility] 10/15/24 Transmitted 13:42 Acetaminophen Tablet [facility] 10/15/24 Transmitted (Tylenol Tablet) 13:45 Nitroglycerin [facility] 10/15/24 Transmitted Sublingual (Ntrostat 13:45 Morphine Sulfate [facility] 10/15/24 Transmitted Injection 13:45 Stat Ekg For Chest [facility] 10/15/24 Transmitted Pain 13:42 Notify Md Of Changes [facility] 10/15/24 Transmitted From Base 13:42 Beam Racker For [facility] 10/15/24 Transmitted 24 Hours 13:42 Emergency Dysrhythmia [facility] 10/15/24 Transmitted Protocol 13:42 Rhythm Strips Once [facility] 10/15/24 Transmitted Every Shift 13:42 Oxygen By Nasal 10/15/24 Transmitted Cannula 13:42 Meclizine Tablet [facility] 10/15/24 Transmitted (Antivert Tablet) 13:45 Date of Service: Oct 15, 2024 Billing Provider: TYLER NANCE Common Visit Codes: [id number] INP/OBS CARE (HIGH) TYLER NANCE Oct 15, 2024 14:11
[2024-10-15] MEDS: SODIUM CHLOR 0.9% PF (SALINE LOCK) 10ML VIAL/SYR IV SCH (14:12)
[2024-10-15] MEDS ORDERED: INSU1INJ19 SC (16:16)
[2024-10-15] MEDS ORDERED: EMPA1TAB3 PO (16:16)
[2024-10-15] MEDS ORDERED: SIMV20TA20 PO (16:16)
[2024-10-15] MEDS ORDERED: MECLIZINE HCL 25 MG TAB PO PRN (16:30)
[2024-10-15 18:30] LABS: Urine Bacteria None Seen /hpf (None Seen)
[2024-10-15 18:39] LABS: Urine Blood Negative /uL (Negative); Urine Clarity Clear (Clear); Urine Color Light-Yellow (Yellow); Urine Hyaline Cast FEW /lpf (0 - 2); Urine Protein, UAD TRACE (Negative); Urine Specific Gravity 1.017 (1.001-1.035); Urine Sperm PRESENT /hpf (None Seen); Urine Squamous Epithelial Cell None Seen /hpf (<5); Urine Urobilinogen Normal (Negative); Urine WBC 1 /HPF (0-3); Urine pH 5.5 (5.0-9.0)
[2024-10-15] MEDS: INSULIN LANTUS (GLARGINE) 1 /0.01ml (100units/ml) SC SCH (22:22)
[2024-10-16] VITALS (104 sets, daily range): BP systolic 114–189; BP diastolic 54–115; PULSE 67–93; RESP 9–26; TEMP 97.8–98.4; O2SAT 88–97
[2024-10-16 05:54] LABS: Eosinophils # (auto) 0.1 10 ^3/uL (0-0.8); Eosinophils % (auto) 1.7 % (0.0-7.0); Lymphocytes # (auto) 1.8 10 ^3/uL (0.4-5.4); Neutrophils # (auto) 5.4 10 ^3/uL (1.6-8.6); Red Cell Distribution Width 13.8 % (11.8-14.3)
[2024-10-16 05:58] LABS: Basophils # (auto) 0 10 ^3/uL (0-0.2); Basophils % (auto) 0.5 % (0.0-2.0); Hematocrit 52.6 % (41.0-53.0); Hemoglobin 18.5 g/dL (13.5-17.5); Mean Corpuscular Hemoglobin 28.7 pg (28.0-32.0); Mean Corpuscular Hgb Conc. 35.2 g/dL (32.0-36.0); Mean Corpuscular Volume 81.5 fL (80.0-100.0); Monocytes # (auto) 0.6 10 ^3/uL (0-1.3); Monocytes % (auto) 8.1 % (0.0-12.0); Neutrophils % (auto) 67.7 % (37.0-80.0); Nucleated Red Blood Cells % 0.5 %; Platelet Count (auto) 190 10^3/uL (140-450); Red Blood Cells 6.46 10^6/uL (4.5-5.90)
[2024-10-16 06:19] LABS: Alanine Aminotransferase 33 U/L (7-40); Alkaline Phosphatase 85 U/L (46-116); Anion Gap 10 (5-15); Blood Urea Nitrogen 18 mg/dL (9-23); Calcium 8.8 mg/dL (8.7-10.4); Carbon Dioxide 24 mmol/L (20-31); Chloride 107 mmol/L (98-107); Glucose 103 mg/dL (74-106); Potassium 3.6 mmol/L (3.5-5.1); Sodium 141 mmol/L (136-145); Total Protein 6.4 g/dL (5.7-8.2)
[2024-10-16 06:20] LABS: Aspartate Aminotransferase 17 U/L (13-40)
[2024-10-16] MEDS: EMPAGLIFLOZIN 10 MG TAB PO SCH (10:11)
[2024-10-16] MEDS: amLODIPine BESYLATE 5 MG TAB PO SCH (10:12)
[2024-10-16] MEDS: ATORVASTATIN 20 MG TAB PO SCH (10:12)
--- NOTE | 2024-10-16 15:36 | DVHPN2 ---
Subjective Patient denies any symptoms. Reviewed: Care Plan, H&P, Labs, Medications Changes from previous H/P or p: No Changes General: Per HPI Eyes: No Pain, No Vision change, No Conjunctivae inflammation, No Eyelid inflammation, No Other, No Redness ENT: No Ear pain, No Ear discharge, No Nose pain, No Nose discharge, No Nose congestion, No Mouth pain, No Mouth swelling, No Throat pain, No Throat swelling, No Other Cardiovascular: No Chest Pain, No Palpitations, No Orthopnea, No Paroxysmal Noc. Dyspnea, No Edema, No Lt Headedness, No Other Respiratory: No Cough, No Dry, No Shortness of breath, No SOB with excertion, No Wheezing, No Hemoptysis, No Pleuritic Pain, No Sputum, No Other Gastrointestinal: Nausea; No Vomiting, No Abdominal Pain, No Diarrhea, No Constipation, No Melena, No Hematochezia, No Other Genitourinary: No Dysuria, No Frequency, No Incontinence, No Hematuria, No Retention, No Other Musculoskeletal: No other, No neck pain, No shoulder pain, No arm pain, No back pain, No hand pain, No leg pain, No foot pain Skin: No Rash, No Lesions, No Jaundice, No Bruising, No Other Objective Vitals Vital Signs Date Time Temp Pulse Resp B/P (MAP) Pulse Ox O2 Delivery O2 Flow Rate FiO2 10/16/24 14:00 138/75 10/16/24 14:00 74 10/16/24 14:00 16 94 Room Air* 0 21 10/16/24 12:01 98.3 98.3 Intake/Output Intake and Output 10/16/24 07:00 Intake Total 2578 ml Output Total 625 ml Balance 1953 ml Intake Oral 700 ml IV Total 1878 ml Output Urine Total 625 ml General Appearance: Alert, Oriented X3, Cooperative, mild distress HEENT: Atraumatic, PERRLA Lungs: Clear to auscultation, Normal air movement Cardiovascular: Normal S1, Normal S2 Musculoskeletal: Normal sensory function, Normal motor function Skin: Dry, Intact Psych/Mental Status: Mental status NL, Mood NL Medications Current Medications Medications Dose Ordered Sig/Kelly Route Start Time Stop Time Status Last Admin Dose Admin Nicardipine/ Sodium Chloride 200 ml @ 50 mls/hr Q4H IV 10/15/24 12:00 10/16/24 12:44 50 MLS/HR Sodium Chloride 10 ml Q8HR IV 10/15/24 14:00 10/16/24 06:12 10 ML Acetaminophen/ Hydrocodone Bitart 1 tab Q4HP PRN PO 10/15/24 13:45 Ondansetron HCl 4 mg Q4HP PRN IV 10/15/24 13:45 Docusate Sodium 100 mg BIDPRN PRN PO 10/15/24 13:45 Acetaminophen 650 mg Q6HP PRN PO 10/15/24 13:45 Nitroglycerin 0.4 mg Q5MINP PRN SL 10/15/24 13:45 Morphine Sulfate 2 mg Q30M PRN IV 10/15/24 13:45 UNV Morphine Sulfate 2 mg Q30M PRN IV 10/15/24 14:00 Amlodipine Besylate 10 mg DAILY PO 10/16/24 10:00 10/16/24 10:12 10 MG Empaglifozin 10 mg DAILY PO 10/16/24 10:00 10/16/24 10:11 10 MG Insulin Glargine 10 units HS SC 10/15/24 22:00 10/15/24 22:22 10 UNITS Atorvastatin Calcium 10 mg DAILY PO 10/16/24 10:00 10/16/24 10:12 10 MG Meclizine HCl 25 mg Q8HPRN PRN PO 10/15/24 16:30 Laboratory Results Laboratory Tests 10/16/24 05:13 Chemistry Test 10/16/24 05:13 Albumin 4.0 g/dL (3.2-4.8) Calcium Level 8.8 mg/dL (8.7-10.4) Total Protein 6.4 g/dL (5.7-8.2) LFT Test 10/16/24 05:13 Alanine Aminotransferase (ALT) 33 U/L (7-40) Alkaline Phosphatase 85 U/L (46-116) Aspartate Amino Transferase (AST) 17 U/L (13-40) Total Bilirubin 1.0 mg/dL (0.2-1.0) HgA1c, TSH Test 10/16/24 05:13 Hemoglobin A1c 6.5 % A1C (<5.7) H Urinalysis Test 10/15/24 18:28 Urine Color Light-yellow (Yellow) Urine Clarity Clear (Clear) Urine pH 5.5 (5.0-9.0) Urine Specific [place] 1.017 (1.001-1.035) Urine Protein Trace (Negative) H Urine Ketones Negative (Negative) Urine Blood Negative /uL (Negative) Urine Nitrite Negative (Negative) Urine Bilirubin Negative (Negative) Urine Urobilinogen Normal mg/dL (Negative) Urine Leukocyte Esterase Negative /uL (Negative) Urine RBC None seen /hpf (0 - 3) Urine Microscopic WBC 1 /HPF (0-3) Urine Squamous Epithelial Cells None seen /hpf (<5) Urine Bacteria None seen /hpf (None Seen) Urine Hyaline Casts Few /lpf (0 - 2) Urine Sperm Present /hpf (None Seen) Urine Glucose 4+ mg/dL (Normal) H Labs and/or images reviewed: Labs reviewed by me, Image(s) reviewed by me Assessment/Plan Assessment/Plan Impression: -hypertensive crisis -medication noncompliance -diabetes mellitus -obesity Plan: -continue nicardipine drip -start hydralazine 50 mg p.o. q.6 hours -continue amlodipine -regular insulin sliding scale -transferred to telemetry floor once nicardipine drip has been weaned off Total time spent with patient discussing and formulating plan of care: 35 minutes. This medical document was created using an electronic medical record system with [employer] dictation system. Although this document has been carefully reviewed, there may still be some phonetic and typographical errors. These areas are purely typographical due to imperfections of the software programs, and do not reflect any compromise in the patient's medical care. Plan discussed with: Patient, Other (RN) My Orders Orders - JORDAN PEPPER NP Procedure Category Date Status Time Hydralazine Hcl PHA 10/16/24 Logged Tablet (Apresoline 15:30 Date of Service: Oct 16, 2024 Billing Provider: JORDAN PEPPER NP Common Visit Codes: [id number] CARE 30-74 MIN JORDAN PEPEPR NP Oct 16, 2024 15:36
[2024-10-16] MEDS: hydrALAZINE HCL 25 MG TAB PO PRN (15:45)
[2024-10-16] MEDS: niCARdipine 50 MG in SODIUM CHL 0.9% 230 ML IV SCH (21:00)
[2024-10-16] MEDS: TEMAZEPAM 15 MG CAP PO ONE (21:56)
[2024-10-17] VITALS (99 sets, daily range): BP systolic 113–161; BP diastolic 58–98; PULSE 68–87; RESP 10–25; TEMP 97.6–98.9; O2SAT 85–98
[2024-10-17 03:53] LABS: Basophils # (auto) 0 10 ^3/uL (0-0.2); Basophils % (auto) 0.6 % (0.0-2.0); Eosinophils # (auto) 0.2 10 ^3/uL (0-0.8); Lymphocytes # (auto) 1.7 10 ^3/uL (0.4-5.4); Monocytes # (auto) 0.6 10 ^3/uL (0-1.3); Neutrophils # (auto) 4.6 10 ^3/uL (1.6-8.6); Nucleated Red Blood Cells % 0.2 %; White Blood Cell 7.1 10^3/uL (4.4-10.8)
[2024-10-17 03:58] LABS: Eosinophils % (auto) 2.6 % (0.0-7.0); Hematocrit 52.6 % (41.0-53.0); Hemoglobin 18.4 g/dL (13.5-17.5); Lymphocytes % (auto) 23.5 % (10.0-50.0); Mean Corpuscular Hemoglobin 28.4 pg (28.0-32.0); Mean Corpuscular Hgb Conc. 34.9 g/dL (32.0-36.0); Mean Corpuscular Volume 81.2 fL (80.0-100.0); Monocytes % (auto) 8.9 % (0.0-12.0); Neutrophils % (auto) 64.4 % (37.0-80.0); Platelet Count (auto) 204 10^3/uL (140-450); Red Blood Cells 6.48 10^6/uL (4.5-5.90)
[2024-10-17 04:30] LABS: Alanine Aminotransferase 36 U/L (7-40); Albumin 4.2 g/dL (3.2-4.8); Alkaline Phosphatase 97 U/L (46-116); Anion Gap 10 (5-15); Aspartate Aminotransferase 19 U/L (13-40); BUN/Creatinine Ratio 14.5 (10.0-20.0); Bilirubin, Total 0.9 mg/dL (0.2-1.0); Blood Urea Nitrogen 18 mg/dL (9-23); Calcium 8.9 mg/dL (8.7-10.4); Carbon Dioxide 24 mmol/L (20-31); Potassium 3.6 mmol/L (3.5-5.1); Sodium 142 mmol/L (136-145); Total Protein 6.7 g/dL (5.7-8.2)
[2024-10-17 04:43] LABS: Chloride 108 mmol/L (98-107); Glucose 108 mg/dL (74-106)
--- NOTE | 2024-10-17 08:59 | DVHPN2 ---
Subjective Patient denies any symptoms. Reviewed: Care Plan, H&P, Labs, Medications Changes from previous H/P or p: No Changes General: Per HPI Eyes: No Pain, No Vision change, No Conjunctivae inflammation, No Eyelid inflammation, No Other, No Redness ENT: No Ear pain, No Ear discharge, No Nose pain, No Nose discharge, No Nose congestion, No Mouth pain, No Mouth swelling, No Throat pain, No Throat swelling, No Other Cardiovascular: No Chest Pain, No Palpitations, No Orthopnea, No Paroxysmal Noc. Dyspnea, No Edema, No Lt Headedness, No Other Respiratory: No Cough, No Dry, No Shortness of breath, No SOB with excertion, No Wheezing, No Hemoptysis, No Pleuritic Pain, No Sputum, No Other Gastrointestinal: Nausea; No Vomiting, No Abdominal Pain, No Diarrhea, No Constipation, No Melena, No Hematochezia, No Other Genitourinary: No Dysuria, No Frequency, No Incontinence, No Hematuria, No Retention, No Other Musculoskeletal: No other, No neck pain, No shoulder pain, No arm pain, No back pain, No hand pain, No leg pain, No foot pain Skin: No Rash, No Lesions, No Jaundice, No Bruising, No Other Objective Vitals Vital Signs Date Time Temp Pulse Resp B/P (MAP) Pulse Ox O2 Delivery O2 Flow Rate FiO2 10/17/24 08:15 79 17 150/88 (108) 93 10/17/24 08:00 Room Air* 0 21 10/17/24 08:00 97.6 97.6 Intake/Output Intake and Output 10/17/24 07:00 Intake Total 2382.5 ml Balance 2382.5 ml Intake Oral 1250 ml IV Total 1132.5 ml # Voids 6 General Appearance: Alert, Oriented X3, Cooperative, mild distress HEENT: Atraumatic, PERRLA Lungs: Clear to auscultation, Normal air movement Cardiovascular: Normal S1, Normal S2 Musculoskeletal: Normal sensory function, Normal motor function Skin: Dry, Intact Psych/Mental Status: Mental status NL, Mood NL Medications Current Medications Medications Dose Ordered Sig/Kelly Route Start Time Stop Time Status Last Admin Dose Admin Sodium Chloride 10 ml Q8HR IV 10/15/24 14:00 10/17/24 06:00 10 ML Acetaminophen/ Hydrocodone Bitart 1 tab Q4HP PRN PO 10/15/24 13:45 Ondansetron HCl 4 mg Q4HP PRN IV 10/15/24 13:45 Docusate Sodium 100 mg BIDPRN PRN PO 10/15/24 13:45 Acetaminophen 650 mg Q6HP PRN PO 10/15/24 13:45 Nitroglycerin 0.4 mg Q5MINP PRN SL 10/15/24 13:45 Morphine Sulfate 2 mg Q30M PRN IV 10/15/24 13:45 UNV Morphine Sulfate 2 mg Q30M PRN IV 10/15/24 14:00 Empaglifozin 10 mg DAILY PO 10/16/24 10:00 10/16/24 10:11 10 MG Insulin Glargine 10 units HS SC 10/15/24 22:00 10/16/24 21:53 10 UNITS Atorvastatin Calcium 10 mg DAILY PO 10/16/24 10:00 10/16/24 10:12 10 MG Meclizine HCl 25 mg Q8HPRN PRN PO 10/15/24 16:30 Nicardipine HCl 50 mg/Sodium Chloride 250 ml @ 25 mls/hr Q10H IV 10/16/24 20:30 10/17/24 04:34 37.5 MLS/HR Nifedipine 90 mg DAILY PO 10/17/24 10:00 UNV Labetalol HCl 10 mg Q2HPRN PRN IV 10/17/24 09:00 UNV Laboratory Results Laboratory Tests 10/17/24 03:37 Chemistry Test 10/17/24 03:37 Albumin 4.2 g/dL (3.2-4.8) Calcium Level 8.9 mg/dL (8.7-10.4) Total Protein 6.7 g/dL (5.7-8.2) LFT Test 10/17/24 03:37 Alanine Aminotransferase (ALT) 36 U/L (7-40) Alkaline Phosphatase 97 U/L (46-116) Aspartate Amino Transferase (AST) 19 U/L (13-40) Total Bilirubin 0.9 mg/dL (0.2-1.0) Urinalysis Test 10/15/24 18:28 Urine Color Light-yellow (Yellow) Urine Clarity Clear (Clear) Urine pH 5.5 (5.0-9.0) Urine Specific [place] 1.017 (1.001-1.035) Urine Protein Trace (Negative) H Urine Ketones Negative (Negative) Urine Blood Negative /uL (Negative) Urine Nitrite Negative (Negative) Urine Bilirubin Negative (Negative) Urine Urobilinogen Normal mg/dL (Negative) Urine Leukocyte Esterase Negative /uL (Negative) Urine RBC None seen /hpf (0 - 3) Urine Microscopic WBC 1 /HPF (0-3) Urine Squamous Epithelial Cells None seen /hpf (<5) Urine Bacteria None seen /hpf (None Seen) Urine Hyaline Casts Few /lpf (0 - 2) Urine Sperm Present /hpf (None Seen) Urine Glucose 4+ mg/dL (Normal) H Labs and/or images reviewed: Labs reviewed by me, Image(s) reviewed by me Assessment/Plan Assessment/Plan Impression: -hypertensive crisis -medication noncompliance -diabetes mellitus -obesity Plan: Events: Patient continues to be on nicardipine drip at 12.5 mg. Patient receiving p.o. hydralazine. -patient denies any symptoms at this time. -start Procardia XL 90 mg p.o. daily , DC amlodipine -IV labetalol p.r.n. systolic greater than 150 mmHg -regular insulin sliding scale -transfer to telemetry floor once nicardipine drip has been weaned off Total time spent with patient discussing and formulating plan of care: 35 minutes. This medical document was created using an electronic medical record system with [employer] dictation system. Although this document has been carefully reviewed, there may still be some phonetic and typographical errors. These areas are purely typographical due to imperfections of the software programs, and do not reflect any compromise in the patient's medical care. Plan discussed with: Patient, Other (RN) My Orders Orders - JORDAN PEPPER NP Procedure Category Date Status Time Communication Order ORDERS 10/16/24 Transmitted 16:45 Nifedipine Er PHA 10/17/24 Transmitted (Procardia Xl 10:00 Labetalol Hcl PHA 10/17/24 Transmitted (Labetalol Hcl) 09:00 Date of Service: Oct 17, 2024 Billing Provider: JORDAN PEPPER NP Common Visit Codes: [id number] CARE 30-74 MIN JORDAN PEPPER NP Oct 17, 2024 08:59
[2024-10-17] MEDS ORDERED: LABETALOL HCL 20 MG/4 ML VL IV PRN (09:00)
[2024-10-17] MEDS: NIFEdipine ER 30 MG TAB PO SCH (10:20)
[2024-10-17] MEDS: LABETALOL HCL 200 MG TAB PO ONE (16:43)
[2024-10-17] MEDS: LABETALOL HCL 200 MG TAB PO SCH (21:50)
[2024-10-17] MEDS: MUPIROCIN 2% OINT 15gm or 22gm FOR MRSA NARES EACHNOSTRI SCH (21:52)
[2024-10-17 22:41] LABS: Potassium 3.7 mmol/L (3.5-5.1)
[2024-10-17 22:48] LABS: Magnesium 2.3 mg/dL (1.6-2.6)
[2024-10-18] VITALS (19 sets, daily range): BP systolic 112–147; BP diastolic 60–89; PULSE 57–83; RESP 12–25; TEMP 97.2–98.2; O2SAT 89–99
[2024-10-18 03:44] LABS: Basophils # (auto) 0 10 ^3/uL (0-0.2); Eosinophils # (auto) 0.1 10 ^3/uL (0-0.8); Hemoglobin 17.2 g/dL (13.5-17.5); Monocytes # (auto) 0.7 10 ^3/uL (0-1.3); Nucleated Red Blood Cells % 0.1 %; White Blood Cell 7.5 10^3/uL (4.4-10.8)
[2024-10-18 03:47] LABS: Basophils % (auto) 0.3 % (0.0-2.0); Eosinophils % (auto) 1.1 % (0.0-7.0); Hematocrit 48.7 % (41.0-53.0); Lymphocytes # (auto) 1.3 10 ^3/uL (0.4-5.4); Lymphocytes % (auto) 16.9 % (10.0-50.0); Mean Corpuscular Hemoglobin 28.7 pg (28.0-32.0); Mean Corpuscular Hgb Conc. 35.3 g/dL (32.0-36.0); Mean Corpuscular Volume 81.1 fL (80.0-100.0); Monocytes % (auto) 9.1 % (0.0-12.0); Neutrophils # (auto) 5.4 10 ^3/uL (1.6-8.6); Neutrophils % (auto) 72.6 % (37.0-80.0); Platelet Count (auto) 184 10^3/uL (140-450); Red Cell Distribution Width 14.1 % (11.8-14.3)
[2024-10-18 04:02] LABS: Alanine Aminotransferase 27 U/L (7-40); Alkaline Phosphatase 93 U/L (46-116); Anion Gap 9 (5-15); BUN/Creatinine Ratio 15.4 (10.0-20.0); Blood Urea Nitrogen 22 mg/dL (9-23); Calcium 8.9 mg/dL (8.7-10.4); Carbon Dioxide 25 mmol/L (20-31); Chloride 106 mmol/L (98-107); Potassium 3.8 mmol/L (3.5-5.1); Sodium 140 mmol/L (136-145); Total Protein 6.3 g/dL (5.7-8.2)
[2024-10-18 04:03] LABS: Bilirubin, Total 0.8 mg/dL (0.2-1.0)
[2024-10-18 04:04] LABS: Aspartate Aminotransferase 13 U/L (13-40); Glucose 129 mg/dL (74-106)
--- NOTE | 2024-10-18 09:46 | DVHPN2 ---
Subjective Patient denies any symptoms. Reviewed: Care Plan, H&P, Labs, Medications Changes from previous H/P or p: No Changes General: Per HPI Eyes: No Pain, No Vision change, No Conjunctivae inflammation, No Eyelid inflammation, No Other, No Redness ENT: No Ear pain, No Ear discharge, No Nose pain, No Nose discharge, No Nose congestion, No Mouth pain, No Mouth swelling, No Throat pain, No Throat swelling, No Other Cardiovascular: No Chest Pain, No Palpitations, No Orthopnea, No Paroxysmal Noc. Dyspnea, No Edema, No Lt Headedness, No Other Respiratory: No Cough, No Dry, No Shortness of breath, No SOB with excertion, No Wheezing, No Hemoptysis, No Pleuritic Pain, No Sputum, No Other Gastrointestinal: Nausea; No Vomiting, No Abdominal Pain, No Diarrhea, No Constipation, No Melena, No Hematochezia, No Other Genitourinary: No Dysuria, No Frequency, No Incontinence, No Hematuria, No Retention, No Other Musculoskeletal: No other, No neck pain, No shoulder pain, No arm pain, No back pain, No hand pain, No leg pain, No foot pain Skin: No Rash, No Lesions, No Jaundice, No Bruising, No Other Objective Vitals Vital Signs Date Time Temp Pulse Resp B/P (MAP) Pulse Ox O2 Delivery O2 Flow Rate FiO2 10/18/24 09:08 81 147/80 10/18/24 08:00 17 93 Room Air* 0 N/A Nasal Cannula* 10/18/24 04:00 98.0 98.0 Intake/Output Intake and Output 10/18/24 07:00 Intake Total 1660.0 ml Output Total 2250 ml Balance -590.0 ml Intake Oral 1100 ml IV Total 560.0 ml Output Urine Total 2250 ml # Bowel Movements 1 General Appearance: Alert, Oriented X3, Cooperative, mild distress HEENT: Atraumatic, PERRLA Lungs: Clear to auscultation, Normal air movement Cardiovascular: Normal S1, Normal S2 Musculoskeletal: Normal sensory function, Normal motor function Skin: Dry, Intact Psych/Mental Status: Mental status NL, Mood NL Medications Current Medications Medications Dose Ordered Sig/Kelly Route Start Time Stop Time Status Last Admin Dose Admin Sodium Chloride 10 ml Q8HR IV 10/15/24 14:00 10/18/24 05:40 10 ML Acetaminophen/ Hydrocodone Bitart 1 tab Q4HP PRN PO 10/15/24 13:45 Ondansetron HCl 4 mg Q4HP PRN IV 10/15/24 13:45 Docusate Sodium 100 mg BIDPRN PRN PO 10/15/24 13:45 Acetaminophen 650 mg Q6HP PRN PO 10/15/24 13:45 Nitroglycerin 0.4 mg Q5MINP PRN SL 10/15/24 13:45 Morphine Sulfate 2 mg Q30M PRN IV 10/15/24 13:45 UNV Morphine Sulfate 2 mg Q30M PRN IV 10/15/24 14:00 Empaglifozin 10 mg DAILY PO 10/16/24 10:00 10/18/24 09:06 10 MG Insulin Glargine 10 units HS SC 10/15/24 22:00 10/17/24 21:51 10 UNITS Atorvastatin Calcium 10 mg DAILY PO 10/16/24 10:00 10/18/24 09:07 10 MG Meclizine HCl 25 mg Q8HPRN PRN PO 10/15/24 16:30 Nicardipine HCl 50 mg/Sodium Chloride 250 ml @ 25 mls/hr Q10H IV 10/16/24 20:30 10/17/24 16:36 50 MLS/HR Nifedipine 90 mg DAILY PO 10/17/24 10:00 10/18/24 09:08 90 MG Labetalol HCl 10 mg Q2HPRN PRN IV 10/17/24 09:00 Labetalol HCl 200 mg Q12HR PO 10/17/24 22:00 10/18/24 09:08 200 MG Mupirocin 1 applic BID EACHNOSTRI 10/17/24 22:00 10/22/24 21:59 Laboratory Results Laboratory Tests 10/18/24 03:17 Chemistry Test 10/17/24 22:25 10/18/24 03:17 Magnesium Level 2.3 mg/dL (1.6-2.6) Albumin 4.0 g/dL (3.2-4.8) Calcium Level 8.9 mg/dL (8.7-10.4) Total Protein 6.3 g/dL (5.7-8.2) LFT Test 10/18/24 03:17 Alanine Aminotransferase (ALT) 27 U/L (7-40) Alkaline Phosphatase 93 U/L (46-116) Aspartate Amino Transferase (AST) 13 U/L (13-40) Total Bilirubin 0.8 mg/dL (0.2-1.0) Urinalysis Test 10/15/24 18:28 Urine Color Light-yellow (Yellow) Urine Clarity Clear (Clear) Urine pH 5.5 (5.0-9.0) Urine Specific [place] 1.017 (1.001-1.035) Urine Protein Trace (Negative) H Urine Ketones Negative (Negative) Urine Blood Negative /uL (Negative) Urine Nitrite Negative (Negative) Urine Bilirubin Negative (Negative) Urine Urobilinogen Normal mg/dL (Negative) Urine Leukocyte Esterase Negative /uL (Negative) Urine RBC None seen /hpf (0 - 3) Urine Microscopic WBC 1 /HPF (0-3) Urine Squamous Epithelial Cells None seen /hpf (<5) Urine Bacteria None seen /hpf (None Seen) Urine Hyaline Casts Few /lpf (0 - 2) Urine Sperm Present /hpf (None Seen) Urine Glucose 4+ mg/dL (Normal) H Microbiology Microbiology Date/Time Source Procedure Growth Status 10/15/24 14:20 Nose MRSA Screen - Final Methicillin Resistant S.aureus Complete Labs and/or images reviewed: Labs reviewed by me, Image(s) reviewed by me Assessment/Plan Assessment/Plan Impression: -hypertensive crisis -medication noncompliance -diabetes mellitus -obesity Plan: Events: Blood pressure now controlled. Hydralazine has been discontinued. -patient denies any symptoms at this time. -continue Procardia XL and labetalol -renin, aldosterone levels pending -IV labetalol p.r.n. systolic greater than 150 mmHg -regular insulin sliding scale Transferred to telemetry floor Total time spent with patient discussing and formulating plan of care: 35 minutes. This medical document was created using an electronic medical record system with [employer] dictation system. Although this document has been carefully reviewed, there may still be some phonetic and typographical errors. These areas are purely typographical due to imperfections of the software programs, and do not reflect any compromise in the patient's medical care. Plan discussed with: Patient, Other (RN) My Orders Orders - JORDAN PEPPER NP Procedure Category Date Status Time Labetalol Hcl Tablet PHA 10/17/24 In Process (Normodyne Tablet) 22:00 Renin Activity And LAB 10/17/24 In Process Aldosterone 16:17 Mupirocin 2% Oint PHA 10/17/24 In Process Mrsa Nares (Bactroban 22:00 Transfer Orders XFER 10/18/24 Transmitted 08:51 Date of Service: Oct 18, 2024 Billing Provider: JORDAN PEPPER NP Common Visit Codes: [id number] INP/OBS CARE(HIGH) JORDAN PEPPER NP Oct 18, 2024 09:46
[2024-10-18] MEDS ORDERED: NIFE90TA75 PO (13:46)
[2024-10-18] MEDS ORDERED: LABE100T7 PO (13:46)
--- NOTE | 2024-10-18 14:17 | DVHDS2 ---
Discharge Summary Date of Admission Oct 15, 2024 at 13:42 Date of Discharge: Oct 18, 2024 Admitting Diagnosis Hypertensive crisis Labs/Diagnostic Data: Laboratory Results Test 10/18/24 03:17 10/17/24 22:25 10/17/24 21:49 10/17/24 17:24 White Blood Count 7.5 10^3/uL (4.4-10.8) Red Blood Count 6.00 10^6/uL (4.5-5.90) Hemoglobin 17.2 g/dL (13.5-17.5) Hematocrit 48.7 % (41.0-53.0) Mean Corpuscular Volume 81.1 fL (80.0-100.0) Mean Corpuscular Hemoglobin 28.7 pg (28.0-32.0) Mean Corpuscular Hemoglobin Concent 35.3 g/dL (32.0-36.0) Red Cell Distribution Width 14.1 % (11.8-14.3) Platelet Count 184 10^3/uL (140-450) Mean Platelet Volume 7.3 fL (6.9-10.8) Neutrophils (%) (Auto) 72.6 % (37.0-80.0) Lymphocytes (%) (Auto) 16.9 % (10.0-50.0) Monocytes (%) (Auto) 9.1 % (0.0-12.0) Eosinophils (%) (Auto) 1.1 % (0.0-7.0) Basophils (%) (Auto) 0.3 % (0.0-2.0) Neutrophils # (Auto) 5.4 10 ^3/uL (1.6-8.6) Lymphocytes # (Auto) 1.3 10 ^3/uL (0.4-5.4) Monocytes # (Auto) 0.7 10 ^3/uL (0-1.3) Eosinophils # (Auto) 0.1 10 ^3/uL (0-0.8) Basophils # (Auto) 0 10 ^3/uL (0-0.2) Nucleated Red Blood Cells 0.1 % Sodium Level 140 mmol/L (136-145) Potassium Level 3.8 mmol/L (3.5-5.1) Chloride Level 106 mmol/L (98-107) Carbon Dioxide Level 25 mmol/L (20-31) Anion Gap 9 (5-15) Blood Urea Nitrogen 22 mg/dL (9-23) Creatinine 1.43 mg/dL (0.700-1.30) Glomerular Filtration Rate Calc 56 mL/min (>90) BUN/Creatinine Ratio 15.4 (10.0-20.0) Serum Glucose 129 mg/dL (74-106) Calcium Level 8.9 mg/dL (8.7-10.4) Total Bilirubin 0.8 mg/dL (0.2-1.0) Aspartate Amino Transferase (AST) 13 U/L (13-40) Alanine Aminotransferase (ALT) 27 U/L (7-40) Alkaline Phosphatase 93 U/L (46-116) Total Protein 6.3 g/dL (5.7-8.2) Albumin 4.0 g/dL (3.2-4.8) Magnesium Level 2.3 mg/dL (1.6-2.6) POC Glucose 155 mg/dl (70-106) Test 10/16/24 05:13 10/15/24 18:28 10/15/24 13:42 Hemoglobin A1c 6.5 % A1C (<5.7) Urine Color Light-yellow (Yellow) Urine Clarity Clear (Clear) Urine pH 5.5 (5.0-9.0) Urine Specific [place] 1.017 (1.001-1.035) Urine Protein Trace (Negative) Urine Ketones Negative (Negative) Urine Blood Negative /uL (Negative) Urine Nitrite Negative (Negative) Urine Bilirubin Negative (Negative) Urine Urobilinogen Normal mg/dL (Negative) Urine Leukocyte Esterase Negative /uL (Negative) Urine RBC None seen /hpf (0 - 3) Urine Microscopic WBC 1 /HPF (0-3) Urine Squamous Epithelial Cells None seen /hpf (<5) Urine Bacteria None seen /hpf (None Seen) Urine Hyaline Casts Few /lpf (0 - 2) Urine Sperm Present /hpf (None Seen) Urine Glucose 4+ mg/dL (Normal) Troponin I High Sensitivity 22 ng/L (</=54) Other Laboratory Tests 10/18/24 03:17 Brief Hx & Hospital Course: History of Present Illness Live Platt is a 59-year-old male with past medical history of hypertension, hyperlipidemia, and diabetes who came for hypertension. Patient states he has been experiencing severe dizziness for about 5 days. It has been debilitating and keeping him in bed. He states he would wake up, eat a little, and go back to sleep. He states it was so severe he didn't want to keep his eyes open. He was not taking any of his medications during this. He began experiencing headaches and the dizziness was not improving prompting him to come to the hospital. Course of hospitalization: Patient was started on nicardipine drip. Patient was transitioned off of drip using Procardia XL as well as labetalol 100 mg p.o. b.i.d.. Patient's blood sugars were controlled using regular insulin sliding scale. Patient's symptoms resolved. Patient will follow up with his PCP, Dr. Weeks in 1-2 weeks and continue previously mentioned antihypertensives. Physical examination General: Alert and Oriented x3. No acute distress. Well-nourished. Eyes: EOMI. Anicteric. HENT: Moist mucous membranes. Lungs: Clear to auscultation bilaterally. No accessory muscle use. Cardiovascular: Regular rate and rhythm. No murmur. No JVD. Abdomen: Soft, non-tender and non-distended. No palpable masses. Extremities: No edema. Non-tender. Skin: No rashes or lesions. Warm. Neurologic: No focal neurological deficits. CN II-XII grossly intact, but not individually tested. Psychiatric: Cooperative. Appropriate mood and affect. Total time spent with patient discussing and formulating plan of care: 35 minutes. This medical document was created using an electronic medical record system with [employer] dictation system. Although this document has been carefully reviewed, there may still be some phonetic and typographical errors. These areas are purely typographical due to imperfections of the software programs, and do not reflect any compromise in the patient's medical care. Condition at Discharge: Fair Final Diagnosis/Problems List HYPERTENSIVE CRISIS Discharge Disposition: Home Discharge Instruct/Medications Diet: Consistent carbohydrate, Cardiac 2g Na,low cholest Activity: No Restrictions, As Tolerated Follow Up/Referral: PCP Dr. Weeks in 1-2 weeks Medications: Labetolol 100mg po bid Nifedipine xl 90mg po daily continue all home medication 36 Discharge Statement: "Patient was advised to return to the ER or call 911 if any headaches, dizziness, shortness of breath, chest pain, abdominal pain, bleeding, fevers, or worsening of medical condition. Patient was counseled about treatment plan, medications, possible side effects, patientverbalized understanding. All questions were answered to the best of my ability. This discharge took greater then 30 minutes in planning, reviewing documentation, counseling the patient, and discussing with other team members." ASSESSMENT ASSESSMENT Assessment HYPERTENSIVE CRISIS Date of Service: Oct 18, 2024 Billing Provider: JORDAN PEPPER NP Common Visit Codes: [id number] DISCH DAY >30min JORDAN PEPPER NP Oct 18, 2024 14:17
[2024-10-21 18:06] LABS: Renin Activity 1.2 ng/mL/hr (.)
== END 2024-10-18 15:23 | disposition home or self-care (01) | DRG 199 ==
LOC: ER 10:31 → OVERFLOW 13:42 → ICU WEST 10-16 23:55
PROVIDERS: ADMIT Nurse Practitioner Acute Care; ATTEND Nurse Practitioner Acute Care
DX: I16.9 Hypertensive crisis, unspecified (principal); G93.89 Other specified disorders of brain; E11.65 Type 2 diabetes mellitus with hyperglycemia; E78.5 Hyperlipidemia, unspecified; Z68.33 Body mass index [BMI] 33.0-33.9, adult; E66.9 Obesity, unspecified; F17.210 Nicotine dependence, cigarettes, uncomplicated; I10 Essential (primary) hypertension; Z91.148 Patient's other noncompliance with medication regimen for other reason; Z79.4 Long term (current) use of insulin; Z79.899 Other long term (current) drug therapy
CPT/HCPCS: 36415; 70450; 71045; 80048; 80053; 81001; 82088; 82962; 83036; 83735; 84132; 84244; 84484; 85025; 87081; 93005; 99291; G0378; J1815